=== PATIENT | female | born 1965 | race Caucasian/White ===

== ENCOUNTER 2022-02-20 16:18 | Observation (INO) ==
[2022-02-20] MEDS ORDERED: ASPIRIN 325 MG TABLET PO STA (16:45)
[2022-02-20] MEDS ORDERED: diphenhydrAMINE CAP 25 MG CAPSULE PO STA (16:45)
[2022-02-20 16:56] LABS: Basophils % 0.7 % (0.0-0.8); Eosinophils # 0.2 10*3/uL (0.0-0.87); Eosinophils % 3.3 % (0.00-10.9); Hematocrit 40.5 VOL% (35.7-47.0); Hemoglobin 13.3 GM/DL (12.0-16.0); Immature Granulocytes % 0.4 %; Immature Granulocytes Absolute 0.02 #; Lymphocytes # 1.8 10*3/uL (1.4-4.0); Lymphocytes % 33.8 % (21.3-54.2); Mean Corpuscular HGB Conc 32.8 GM/DL (32-36); Monocytes # 0.5 10*3/uL (0.11-0.8); Monocytes % 9.7 % (1.7-12.7); Neutrophils % 52.1 % (38.7-73.9); Platelet Count 188 T/CUMM (130-400); Red Cell Distribution Width 12.7 % (9.3-17.3); White Blood Count 5.4 T/CUMM (4-12)
[2022-02-20 17:05] LABS: PT Patient Result 10.9 SECS (10.1-12.1)
[2022-02-20 17:27] LABS: Albumin 3.7 G/DL (3.4-5.0); Bilirubin,Total 0.4 MG/DL (0.20-1.00); Calcium 9.5 MG/DL (8.5-10.1); Osmolality,Calculated 280.4 MOS/KG (273-304); Potassium 3.6 MMOL/L (3.5-5.1); Total Protein 6.6 G/DL (6.4-8.2)
[2022-02-20] MEDS ORDERED: GLUCAGON 1 MG VIAL IM PRN (19:01)
[2022-02-20] MEDS ORDERED: DEXTROSE 10% 250 ML BAG IV PRN (19:01)
[2022-02-20] MEDS ORDERED: PANTOPRAZOLE 40 MG VIAL IV STA (19:03)
[2022-02-20] MEDS ORDERED: hydrALAZINE 20 MG/1 ML VIAL IV PRN (19:09)
[2022-02-20] MEDS ORDERED: ONDANSETRON 4 MG/2 ML VIAL IV PRN (19:09)
[2022-02-20] MEDS ORDERED: NICOTINE 21 MG/24 HR PATCH TRANSDERM PRN (19:09)
[2022-02-20] MEDS ORDERED: amLODIPine 5 MG TABLET PO STA (19:10)
[2022-02-21 05:23] LABS: Basophils % 0.7 % (0.0-0.8); Eosinophils # 0.2 10*3/uL (0.0-0.87); Eosinophils % 4.5 % (0.00-10.9); Hemoglobin 12.6 GM/DL (12.0-16.0); Immature Granulocytes % 0.2 %; Immature Granulocytes Absolute 0.01 #; Lymphocytes # 1.2 10*3/uL (1.4-4.0); Lymphocytes % 30.2 % (21.3-54.2); Mean Corpuscular HGB Conc 32.3 GM/DL (32-36); Mean Platelet Volume 10.1 FL (9.6-12.0); Monocytes # 0.4 10*3/uL (0.11-0.8); Monocytes % 9.4 % (1.7-12.7); Platelet Count 171 T/CUMM (130-400); Red Blood Count 4.24 MC/CUMM (3.8-5.5); Red Cell Distribution Width 12.6 % (9.3-17.3)
[2022-02-21 05:37] LABS: Calcium 8.7 MG/DL (8.5-10.1); Osmolality,Calculated 282.1 MOS/KG (273-304); Potassium 3.9 MMOL/L (3.5-5.1)
[2022-02-21] MEDS ORDERED: INFLUENZA VIRUS VACCINE 0.5 ML SYRINGE IM ONE (09:00)
[2022-02-21 12:11] VITALS: BP 120/66
== END 2022-02-21 13:15 | disposition home or self-care (01) ==
LOC: N.ED 16:18 → N.EDINP 16:18 → N.5E 20:09 → N.3E 20:19
PROVIDERS: ADMIT Emergency Medicine; ATTEND Emergency Medicine